=== PATIENT | female | born 2000 | race Caucasian/White ===

== ENCOUNTER → 2020-10-09 13:03 | Outpatient (BNVA) | payer MEDICAID, SELFPAY | PROVIDERS: Visit Provider Psychiatry & Neurology Psychiatry | DX: F43.12 Post-traumatic stress disorder, chronic (principal); F33.2 Major depressive disorder, recurrent severe without psychotic features; F41.1 Generalized anxiety disorder; F10.10 Alcohol abuse, uncomplicated | CPT/HCPCS: 99204 ==

== ENCOUNTER 2020-10-22 01:28 | Inpatient (IN) | payer MEDICAID, SELFPAY ==
[2020-10-22 01:35] VITALS: BP 128/92; PULSE 90; RESP 16; TEMP 37.2; O2SAT 97; BMI 28.3
--- NOTE | 2020-10-22 01:37 | W.ED.PSYCH ---
HPI - Psych General: Chief Complaint: Psychiatric Symptoms Stated Complaint: ETOH/CUTTING HER SELF Time Seen by Provider: 10/22/20 01:28 Source: patient and EMS Mode of arrival: EMS Limitations: no limitations History of Present Illness: HPI Narrative: 20-year-old female here by EMS. Per EMS patient she had gotten argument with her boyfriend. States she was very angry and started to drink alcohol. She then cut her right wrist superficially. Patient's boyfriend called police who then called EMS. Patient is intoxicated but states she is having active suicidal thoughts. She has no specific plan but states she is having suicidal thoughts. She states she is attempted to kill herself in the past but denies any previous admissions to a psych unit. Associated symptoms: Reports depression and suicidal ideation Review of Systems Const: Denies: fever(s), chills, body aches or change in appetite Eyes: Denies: blurry vision or eye discomfort ENMT: Denies: throat pain or dental pain Card: Denies: chest pain Resp: Denies: dyspnea GI: Denies: abdominal pain, nausea, vomiting or diarrhea : Denies: dysuria Musc: Denies: neck pain or back pain Skin/Breast: Denies: rash Neuro: Denies: headache(s) Psych: Reports: depression and suicidal ideation Jori/Lymph: Denies: easy bruising All/Imm: Denies: urticaria PFS ED PFSH: Social History (Updated 10/09/20 @ 13:57 by Tee Gary LPN) Smoking and tobacco status: current some day smoker cigarettes Years cigarettes smoked: 5 Physical Exam Const: COMMON NORMALS: no acute distress (intoxicated) and patient oriented x3 HENMT: COMMON NORMALS: normocephalic and atraumatic HEAD & SCALP: normocephalic and atraumatic Eye: COMMON NORMALS: Equal, round and reactive pupils present and EOMs intact bilaterally PUPIL: Yes Equal, round and reactive pupils present Neck/C-Spine: COMMON NORMALS: full ROM and supple Chest: COMMONS NORMALS: normal inspection of the chest and normal palpation of entire chest wall Resp: COMMON NORMALS: normal respiratory effort, No retractions, No use of accessory muscles and clear to auscultation bilaterally AUSCULTATION: clear to auscultation bilaterally Cardio: COMMON NORMALS: regular rate, regular rhythm and No murmurs present (Cardio) RATE: regular rate RHYTHM: regular rhythm GI: COMMON NORMALS: Normal to inspection, nondistended, normoactive bowel sounds present, Soft to palpation, non-tender and no masses PALPATION: Yes Soft to palpation Extremity: COMMON NORMALS: normal to inspection and full ROM Neuro: COMMON NORMALS: patient oriented x3, moves all extremities and no focal motor deficits Psych: COMMON NORMALS: mental status grossly normal, Normal thought process present and cooperative THOUGHT PROCESS: Normal thought process present THOUGHT CONTENT: Yes Suicidality present Skin: COMMON NORMALS: no rashes or lesions noted and no wounds NARRATIVE SKIN EXAM: Multiple very superficial lacerations to right forearm GENERAL SKIN EXAM: no rashes or lesions noted Course Vital Signs: Vital signs: Vital Signs Temperature 98.9 F 10/22/20 01:35 Pulse Rate 90 10/22/20 01:35 Respiratory Rate 16 10/22/20 01:35 Blood Pressure 128/92 10/22/20 01:35 Pulse Oximetry 97 10/22/20 01:35 MDM - Psych MDM Narrative: Medical decision making narrative: Patient presents here with suicidal ideation along with alcohol abuse. She is well-appearing here and patient placed under 96-hour hold. I spoke to psychiatrist and will admit. Her lacerations are very superficial. They do not require sutures. Lab Data: Labs: Lab Results 10/22/20 10/22/20 10/22/20 Range/Units 02:00 02:00 03:00 WBC 8.4 (4.0-10.0) 10^3/ uL RBC 4.32 (4.1-5.3) 10^6/u L Hgb 12.8 (11.5-15.3) g/dL Hct 39.0 (37.0-47.0) % MCV 90.3 (81-99) fl MCH 29.6 (28.0-34.0) pg MCHC 32.8 (30.0-36.0) g/dL RDW 13.1 (12.1-15.1) % Plt Count 308 (130-400) 10^3/c mm MPV 11.4 H (7.4-10.4) fL Neut % (Auto) 67.8 % Lymph % (Auto) 24.9 % [place] % (Auto) 5.8 % Eos % (Auto) 0.8 % Baso % (Auto) 0.2 % Neut # (Auto) 5.72 (1.8-7.7) 10^3/u L Lymph # (Auto) 2.1 (0.8-4.8) 10^3/u L [place] # (Auto) 0.5 (0.2-0.9) 10^3/u L Eos # (Auto) 0.1 (0.0-0.8) 10^3/u L Baso # (Auto) 0.0 (0.0-0.1) 10^3/u L Nucleated RBC % (a uto) 0 % Nucleated RBCs # 0.0 /100WBC Sodium 144 (136-145) mmol/L Potassium 4.3 (3.5-5.1) mmol/L Chloride 107 (98-107) mmol/L Carbon Dioxide 21 L (22-29) mmol/L Anion Gap 20.3 H (5-19) BUN 8 (6-20) mg/dL Creatinine 0.6 (0.5-0.9) mg/dL GFR Calculation 125.0 (90-130) mL/min Glucose 98 (65-115) mg/dL Calculated Osmolal ity 296 H (285-295) mOsm/k g Calcium 9.3 (8.5-10.5) mg/dL Total Bilirubin 0.2 (0.15-1.2) mg/dL AST 25 (0-32) U/L ALT 19 (0-33) U/L Alkaline Phosphata se 93 (35-105) IU/L Total Protein 6.9 (6.6-8.7) g/dL Albumin 4.5 (3.5-5.2) g/dL Globulin 2.4 (1.3-4.6) g/dL HCG, Qual Negative (Negative) Salicylates < 0.3 L (3-10) mg/dL Urine Opiates Scre en (Negative) ng/mL Acetaminophen < 5.0 L (10-30) ug/mL Ur Barbiturates Sc reen (Negative) ng/mL Ur Phencyclidine S crn (Negative) ng/mL Ur Amphetamines Sc reen (Negative) ng/mL U Benzodiazepines Scrn (Negative) ng/mL Urine Cocaine Scre en (Negative) ng/mL U Marijuana (THC) Screen (Negative) ng/mL Ethyl Alcohol 223 H (0-10) mg/dL 10/22/20 Range/Units 03:00 WBC (4.0-10.0) 10^3/ uL RBC (4.1-5.3) 10^6/u L Hgb (11.5-15.3) g/dL Hct (37.0-47.0) % MCV (81-99) fl MCH (28.0-34.0) pg MCHC (30.0-36.0) g/dL RDW (12.1-15.1) % Plt Count (130-400) 10^3/c mm MPV (7.4-10.4) fL Neut % (Auto) % Lymph % (Auto) % [place] % (Auto) % Eos % (Auto) % Baso % (Auto) % Neut # (Auto) (1.8-7.7) 10^3/u L Lymph # (Auto) (0.8-4.8) 10^3/u L [place] # (Auto) (0.2-0.9) 10^3/u L Eos # (Auto) (0.0-0.8) 10^3/u L Baso # (Auto) (0.0-0.1) 10^3/u L Nucleated RBC % (a uto) % Nucleated RBCs # /100WBC Sodium (136-145) mmol/L Potassium (3.5-5.1) mmol/L Chloride (98-107) mmol/L Carbon Dioxide (22-29) mmol/L Anion Gap (5-19) BUN (6-20) mg/dL Creatinine (0.5-0.9) mg/dL GFR Calculation (90-130) mL/min Glucose (65-115) mg/dL Calculated Osmolal ity (285-295) mOsm/k g Calcium (8.5-10.5) mg/dL Total Bilirubin (0.15-1.2) mg/dL AST (0-32) U/L ALT (0-33) U/L Alkaline Phosphata se (35-105) IU/L Total Protein (6.6-8.7) g/dL Albumin (3.5-5.2) g/dL Globulin (1.3-4.6) g/dL HCG, Qual (Negative) Salicylates (3-10) mg/dL Urine Opiates Scre en Negative (Negative) ng/mL Acetaminophen (10-30) ug/mL Ur Barbiturates Sc reen Negative (Negative) ng/mL Ur Phencyclidine S crn Negative (Negative) ng/mL Ur Amphetamines Sc reen Negative (Negative) ng/mL U Benzodiazepines Scrn Negative (Negative) ng/mL Urine Cocaine Scre en Negative (Negative) ng/mL U Marijuana (THC) Screen Negative (Negative) ng/mL Ethyl Alcohol (0-10) mg/dL Discharge Plan Discharge Patient Disposition: Admitted As Inpatient Clinical Impression: Suicidal ideation, Alcohol abuse Condition: Stable Coding Level of Care Code ED Traveling Construction Superintendent for [facility] Exam Comprehensive
[2020-10-22 02:15] LABS: Basophils % 0.2 %; Eosinophils # 0.1 10^3/uL (0.0-0.8); Eosinophils % 0.8 %; Hemoglobin 12.8 g/dL (11.5-15.3); Lymphocytes # 2.1 10^3/uL (0.8-4.8); Lymphocytes % 24.9 %; Mean Corpuscular HGB Conc 32.8 g/dL (30.0-36.0); Mean Corpuscular Hemoglobin 29.6 pg (28.0-34.0); Mean Corpuscular Volume 90.3 fl (81-99); Mean Platelet Volume 11.4 fL (7.4-10.4); Monocytes # 0.5 10^3/uL (0.2-0.9); Monocytes % 5.8 %; Neutrophils # 5.72 10^3/uL (1.8-7.7); Neutrophils % 67.8 %; Nucleated Red Blood Cells % 0 %; Platelet Count 308 10^3/cmm (130-400); Red Blood Count 4.32 10^6/uL (4.1-5.3); Red Cell Distribution Width 13.1 % (12.1-15.1); White Blood Count 8.4 10^3/uL (4.0-10.0)
[2020-10-22 02:36] LABS: Alanine Aminotransferase 19 U/L (0-33); Albumin Level 4.5 g/dL (3.5-5.2); Alcohol Level 223 mg/dL (0-10); Alkaline Phosphatase 93 IU/L (35-105); Anion Gap 20.3 (5-19); Aspartate Amino Transferase 25 U/L (0-32); Blood Urea Nitrogen 8 mg/dL (6-20); Calcium 9.3 mg/dL (8.5-10.5); Carbon Dioxide 21 mmol/L (22-29); Chloride 107 mmol/L (98-107); Globulin 2.4 g/dL (1.3-4.6); Glucose 98 mg/dL (65-115); Osmolality Calculated 296 mOsm/kg (285-295); Potassium 4.3 mmol/L (3.5-5.1); Sodium 144 mmol/L (136-145); Total Bilirubin 0.2 mg/dL (0.15-1.2); Total Protein 6.9 g/dL (6.6-8.7)
[2020-10-22 02:37] LABS: Acetaminophen < 5.0 ug/mL (10-30); Salicylate < 0.3 mg/dL (3-10)
[2020-10-22 03:11] LABS: HCG Qualitative Urine. Negative (Negative)
[2020-10-22 03:15] LABS: Amphetamines Screen Urine Negative (Negative); Barbiturates Screen Urine Negative (Negative); Benzodiazepines Screen Urine Negative (Negative); Cocaine Screen Urine Negative (Negative); Opiate Screen Urine Negative (Negative); PCP Screen Urine Negative (Negative); THC Screen Urine Negative (Negative)
[2020-10-22 08:05] LABS: Glucose Point of Care 84 mg/dL (70-110)
[2020-10-22] MEDS: nicotine 2 mg Gum BUCCAL (15:33)
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
[2020-10-22] MEDS: prazosin 5 mg Capsule PO (21:22)
--- NOTE | 2020-10-23 01:05 | PC.NURSE ---
pm ASSESSMENT PT IS COOPERATIVE WITH STAFF, SHE DENIES PAIN, DENIED AVH, DENIES SI/HI. pT IS SELF CONSCIOUS ABOUT HER ALOPECIA. pT ASKS AND ANSWERS QUESTIONS APPROPRIATELY. SHE IS SOMEWHAT GUARDED THIS EVENING.
[2020-10-23] MEDS: multivitamin therapeutic Tablet 1 TAB PO (08:49)
[2020-10-23] MEDS: folic acid 1 mg Tablet PO (08:49)
[2020-10-23] MEDS: fluoxetine 20 mg Capsule PO (08:50)
[2020-10-23] MEDS: thiamine 100 mg Tablet PO (08:50)
[2020-10-23] MEDS: prenatal vitamin Capsule 1 CAP PO (08:50)
[2020-10-23] MEDS: ferrous sulfate EC 325 mg Tablet PO (08:50)
[2020-10-23] MEDS: nicotine 2 mg Gum BUCCAL (11:18)
--- NOTE | 2020-10-23 15:21 | PM.NPN ---
Subjective NPU Subjective: Interval history: The patient is feeling sad and depressed. She misses home, and is tired and has a headache. She talks about how she takes care of everyone in the house, including her boyfriend's mother and the pets. He talks about her plans to move with her baby to [place] and live with her cousin or her aunt. She feels she is going to have to slip away without telling her boyfriend about it. She denies suicidal and homicidal ideation. She denies auditory and visual hallucinations. The patient started on Prozac and Minipress a week or 2 ago, as prescribed by Dr. Jacinto. The only side effect is some dizziness when she stands up. Mental Status Exam MSE Comments: I met with the patient in the dayroom, and she was calm, cooperative, interactive, and made good eye contact. No psychomotor agitation or retardation. Speech is at a regular rate and rhythm, normal volume, good articulation, not pressured. Alert, oriented to person, place, time, situation. Attention and concentration were intact to exam. Memory is adequate for exam. Mood is depressed. Affect is pleasant and then tearful. Thought process is logical and goal-directed. Thought content: Denies auditory and visual hallucinations. No delusions or paranoia are noted. No current suicidal ideation, and no homicidal ideation. She had suicidal ideation prior to admission. Insight and judgment appear to be fair. Impulse control is fair as well. Vitals/I&O/Wt Last Vital Signs Temp 97.8 F 10/23/20 20:00 Pulse 93 10/23/20 20:00 Resp 16 10/23/20 20:00 BP 107/71 10/23/20 20:00 Pulse Ox 95 10/23/20 20:00 Data NPU : 10/22/20 02:00 10/22/20 02:00 A&P Assessment and plan (1) Suicidal ideation: Status: Acute (2) Alcohol abuse: Status: Acute (3) Generalized anxiety disorder: Status: Acute (4) Major depressive disorder, recurrent severe without psychotic features: Status: Acute (5) Chronic post-traumatic stress disorder: Status: Acute Additional A&P Information 1. Continue current medication. She was recently started on Prozac and Minipress. The Prozac will not have had time to reach its full effectiveness. We will continue at this dose. 2. Continue every 15 minute checks for safety. 3. Encourage individual, group and milieu therapies. 4. Encourage sober living treatment after discharge at the highest level of care to which he is willing to commit. Involuntary Hold Information 96 Hour Hold: 96 Hour Involuntary Admission: Yes 96 Hour Hold Ending Date: 10/28/20 96 Hour Hold Ending Time: 03:20 Attestations NPU Medical Necessity Statement*: Psychiatric hospitalization is medically necessary to prevent access to lethal means, to reevaluate medication, and to coordinate a safe discharge. Likely length of stay is 1 to 3 days. Coding Level of Care Code Acute Assistant Professor Of English for [facility] Fwd Diagnoses Suicidal ideation R45.851 Alcohol abuse F10.10 Generalized anxiety disorder F41.1 Major depressive disorder, recurrent severe without psychotic features F33.2 Chronic post-traumatic stress disorder F43.12
[2020-10-23] MEDS: acetaminophen 325 mg Tablet 650 MG PO (18:04)
[2020-10-23 20:00] VITALS: BP 107/71; PULSE 93; RESP 16; TEMP 36.6; O2SAT 95
[2020-10-23] MEDS: prazosin 5 mg Capsule PO (21:10)
[2020-10-24] MEDS: thiamine 100 mg Tablet PO (08:17)
[2020-10-24] MEDS: prenatal vitamin Capsule 1 CAP PO (08:17)
[2020-10-24] MEDS: folic acid 1 mg Tablet PO (08:17)
[2020-10-24] MEDS: multivitamin therapeutic Tablet 1 TAB PO (08:17)
[2020-10-24] MEDS: ferrous sulfate EC 325 mg Tablet PO (08:17)
[2020-10-24] MEDS: fluoxetine 20 mg Capsule PO (08:17)
[2020-10-24] MEDS: nicotine 2 mg Gum BUCCAL ×2 (08:24→16:19)
[2020-10-24] MEDS: blistex lip oint 7 gm Tube 1 APPLIC TOPICAL (09:58)
[2020-10-24] MEDS: acetaminophen 325 mg Tablet 650 MG PO (14:47)
--- NOTE | 2020-10-24 17:22 | PM.NPN ---
Subjective NPU Subjective: Interval history: Brianda presents today reporting that she is feeling like she is doing little better and would like to go home to take care of her baby. She reports that she feels more stable than she did when she came in. When asked about how she was going to manage the difficult psychosocial situations he found resultant she reports that she plans on trying to continue to make the relationship work. We agreed that we would get some collateral information and consider discharge after that point. She reports eating okay and sleeping well. Mental Status Exam MSE Comments: This is an overweight white female with adequate grooming and eye contact. Absent any hair on her head including her eyebrows. No abnormal movement except for mild psychomotor retardation. Cooperative with exam and no acute distress. Speech was mostly normal rate and volume. Mood described as a little better affect. Euthymic. Thought process organized. Thought content: Patient denied suicidal or homicidal ideation, there are no delusions reported or noted, she denied any auditory or visualizations. Attention and concentration appeared intact and memory seemed reliable but none were formally tested. She is alert and oriented x3. Insight and judgment appear fair impulse control appears fair. Vitals/I&O/Wt Last Vital Signs Temp 97.8 F 10/23/20 20:00 Pulse 93 10/23/20 20:00 Resp 16 10/23/20 20:00 BP 107/71 10/23/20 20:00 Pulse Ox 95 10/23/20 20:00 Data NPU : 10/22/20 02:00 10/22/20 02:00 A&P Assessment and plan (1) Suicidal ideation: Status: Acute (2) Alcohol abuse: Status: Acute (3) Generalized anxiety disorder: Status: Acute (4) Major depressive disorder, recurrent severe without psychotic features: Status: Acute (5) Chronic post-traumatic stress disorder: Status: Acute Additional A&P Information This is a 20-year-old white female with a long history of trauma and mental health issues who presents after recent loss of her child since then 6-month gestation found her self a difficult situation and began having suicidal thoughts with active alcohol use now open to getting engaged in treatment. 1. Continue current medication. She was recently started on Prozac and Minipress. The Prozac will not have had time to reach its full effectiveness. We will continue at this dose. 2. Continue every 15 minute checks for safety. 3. Encourage individual, group and milieu therapies. 4. Encourage sober living treatment after discharge at the highest level of care to which he is willing to commit. Involuntary Hold Information 96 Hour Hold: 96 Hour Involuntary Admission: Yes 96 Hour Hold Ending Date: 10/28/20 96 Hour Hold Ending Time: 03:20 Attestations NPU Medical Necessity Statement*: Inpatient hospitalization is medically necessary and the clinically appropriate intervention at this time. We will monitor medications and make changes as indicated. Likely length of stay 1-3 days. Coding Level of Care Code Acute Nurse'S Companion for g Fwd Diagnoses Suicidal ideation R45.851 Alcohol abuse F10.10 Generalized anxiety disorder F41.1 Major depressive disorder, recurrent severe without psychotic features F33.2 Chronic post-traumatic stress disorder F43.12
[2020-10-24] MEDS: prazosin 5 mg Capsule PO (20:37)
[2020-10-25] MEDS: hyDROXYzine 25 mg Capsule 50 MG PO (02:48)
[2020-10-25 06:20] VITALS: BP 107/71; PULSE 93; RESP 16; TEMP 36.6; O2SAT 95
[2020-10-25] MEDS: prenatal vitamin Capsule 1 CAP PO (08:45)
[2020-10-25] MEDS: thiamine 100 mg Tablet PO (08:46)
[2020-10-25] MEDS: fluoxetine 20 mg Capsule PO (08:46)
[2020-10-25] MEDS: multivitamin therapeutic Tablet 1 TAB PO (08:46)
[2020-10-25] MEDS: ferrous sulfate EC 325 mg Tablet PO (08:46)
[2020-10-25] MEDS: folic acid 1 mg Tablet PO (08:46)
[2020-10-25] MEDS: nicotine 2 mg Gum BUCCAL ×2 (10:11→21:53)
--- NOTE | 2020-10-25 11:13 | PM.NPN ---
Subjective NPU Subjective: Interval history: Brianda presents today reporting that things are going better she feels she continues to discussed the fact that going home is necessary and now he has a living possible addiction. We did discuss that if visualizations have a process and does not like she can not be told to leave tomorrow. She reports though they have significant packing to do and she continues to endorse that her plan is to move forward with working through her relationship with her significant other and moving on to [place]. We talked about possible discharge in the morning. Mental Status Exam MSE Comments: This is an overweight white female with adequate grooming and eye contact. Absent any hair on her head including her eyebrows. No abnormal movement except for mild psychomotor retardation. Cooperative with exam and no acute distress. Speech was mostly normal rate and volume. Mood described as better, affect congruent. Thought process organized. Thought content: Patient denied suicidal or homicidal ideation, there are no delusions reported or noted, she denied any auditory or visualizations. Attention and concentration appeared intact and memory seemed reliable but none were formally tested. She is alert and oriented x3. Insight and judgment appear fair impulse control appears fair. Vitals/I&O/Wt Last Vital Signs Temp 97.5 F L 10/25/20 06:20 Pulse 89 10/25/20 06:20 Resp 17 10/25/20 06:20 BP 107/71 10/25/20 06:20 Pulse Ox 98 10/25/20 06:20 Data NPU : 10/22/20 02:00 10/22/20 02:00 A&P Additional A&P Information (1) Suicidal ideation: (2) Alcohol abuse: (3) Generalized anxiety disorder: (4) Major depressive disorder, recurrent severe without psychotic features: (5) Chronic post-traumatic stress disorder: Additional A&P Information This is a 20-year-old white female with a long history of trauma and mental health issues who presents after recent loss of her child since then 6-month gestation found her self a difficult situation and began having suicidal thoughts with active alcohol use now open to getting engaged in treatment. 1. Continue current medication. 2. Continue every 15 minute checks for safety. 3. Encourage individual, group and milieu therapies. 4. Encourage sober living treatment after discharge at the highest level of care to which he is willing to commit. Involuntary Hold Information 96 Hour Hold: 96 Hour Involuntary Admission: Yes 96 Hour Hold Ending Date: 10/28/20 96 Hour Hold Ending Time: 03:20 Attestations NPU Medical Necessity Statement*: Inpatient hospitalization is medically necessary and the clinically appropriate intervention at this time. We will monitor medications and make changes as indicated. Likely length of stay 1-2 days. Coding Level of Care Code Acute Religious Activities Director for [facility]
[2020-10-25 14:00] VITALS: BP 105/72; PULSE 89; RESP 17; TEMP 36.4; O2SAT 98
--- NOTE | 2020-10-25 17:55 | PC.RESP ---
SMOKING CESSATION INFORMATION SENT TO PATIENT.
[2020-10-25 19:54] VITALS: BP 127/85; PULSE 94; RESP 20; TEMP 36.5; O2SAT 96
[2020-10-25] MEDS: prazosin 5 mg Capsule PO (20:49)
[2020-10-25] MEDS: acetaminophen 325 mg Tablet 650 MG PO (21:05)
[2020-10-26 06:00] VITALS: BP 94/63; PULSE 85; RESP 17; TEMP 37; O2SAT 97
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
[2020-10-26] MEDS: thiamine 100 mg Tablet PO (08:40)
[2020-10-26] MEDS: nicotine 2 mg Gum BUCCAL (08:40)
[2020-10-26] MEDS: multivitamin therapeutic Tablet 1 TAB PO (08:40)
[2020-10-26] MEDS: folic acid 1 mg Tablet PO (08:40)
[2020-10-26] MEDS: fluoxetine 20 mg Capsule PO (08:40)
[2020-10-26] MEDS: ferrous sulfate EC 325 mg Tablet PO (08:40)
[2020-10-26] MEDS: prenatal vitamin Capsule 1 CAP PO (08:40)
[2020-10-26 08:54] VITALS: BP 94/63; PULSE 85; RESP 17; TEMP 37; O2SAT 97
== END 2020-10-26 11:49 | disposition home or self-care (01) | DRG 885 ==
LOC: ER 03:20 → NP 13:49
PROVIDERS: Admitting Provider Psychiatry & Neurology Child & Adolescent Psychiatry; Emergency Provider Emergency Medicine; Visit Provider Psychiatry & Neurology Psychiatry
DX: F33.2 Major depressive disorder, recurrent severe without psychotic features (principal); R45.851 Suicidal ideations; F10.10 Alcohol abuse, uncomplicated; L65.9 Nonscarring hair loss, unspecified; F17.210 Nicotine dependence, cigarettes, uncomplicated; F43.12 Post-traumatic stress disorder, chronic; F41.1 Generalized anxiety disorder; E66.3 Overweight; Z81.8 Family history of other mental and behavioral disorders; Z81.1 Family history of alcohol abuse and dependence; Z68.28 Body mass index [BMI] 28.0-28.9, adult
CPT/HCPCS: 36415; 36416; 80053; 80306; 80307; 81025; 82962; 85025; 99285

== ENCOUNTER → 2020-11-08 07:28 | Outpatient (BNVA) | payer MEDICAID, SELFPAY | PROVIDERS: Visit Provider Psychiatry & Neurology Psychiatry | DX: F60.3 Borderline personality disorder (principal); F41.1 Generalized anxiety disorder; F33.2 Major depressive disorder, recurrent severe without psychotic features; F43.12 Post-traumatic stress disorder, chronic; F10.10 Alcohol abuse, uncomplicated | CPT/HCPCS: 99213 ==